=== PATIENT | male | born 2000 | race African-American/Black ===

== ENCOUNTER 2022-07-31 21:08 | Emergency (ER) | payer OTHER ==
[2022-07-31] MEDS ORDERED: Dexamethasone 10 MG/ML VIAL ONE (21:30)
== END 2022-07-31 21:41 | disposition home or self-care (01) ==
LOC: BURERS 21:08
DX: R22.31 Localized swelling, mass and lump, right upper limb (principal)
CPT/HCPCS: 96372; 99283; J1100